=== PATIENT | female | born 1965 | race Caucasian/White ===

== ENCOUNTER 2017-11-15 12:28 | Emergency (ER) | payer BC ==
[~2017-11-15] VITALS: Ht 172.7 cm; Wt 59.0 kg
[2017-11-15] MEDS ORDERED: REGLAN 10 MG TA10 MG PO (13:56)
== END 2017-11-15 14:17 | disposition home or self-care (01) ==
LOC: ER 12:28
DX: G43.909 Migraine, unspecified, not intractable, without status migrainosus (principal); Z88.2 Allergy status to sulfonamides; Z88.8 Allergy status to other drugs, medicaments and biological substances